=== PATIENT | female | born 1945 | race Caucasian/White ===

== ENCOUNTER 2016-08-26 02:37 | Emergency (ER) | payer MEDICARE ==
[~2016-08-26] VITALS: Ht 157.5 cm; Wt 54.5 kg
[~2016-08-26 02:37] MED LIST: AMOXICILLIN 8751 TAB PO; CALCIUM 600600 M2 PO; CAPOTEN 25MG25 MG PO; FERROUS SU325 MG/TAB PO; FLAGYL500 MG PO; IRON325 MG PO; MULTI VITAMINS1 TAB PO; NORVASC 5MG5 MG/TAB PO; OMNICEF 300MG300 MG PO; PROTONIX 40MG T40 MG PO; PYRIDIUM 100MG100 MG PO; TYLENOL 325MG325 MG PO; VITAMIN D32000 I1 PO; VTAMINC250TA; ZIAC 5/6.25MG T1 TAB PO; ZYRTEC 10MG10 MG PO
[2016-08-26 02:44] VITALS: TEMP 97.5
[2016-08-26] MEDS ORDERED: FLOVENT DI50 MCG/Act IH (03:04)
[2016-08-26 03:48] LABS: BASO # 0.1 (0.0-0.2); BASO % 0.8 % (0.0-2.0); EOS # 0.4 (0.0-0.7); EOS % 4.8 % (0-4.0); GRAN # 5.9 (1.4-6.5); HEMATOCRIT 37.1 % (37.0-47.0); HEMOGLOBIN 12.9 g/dl (12.5-16.0); LYMPH # 1.8 (1.2-3.4); LYMPH % 19.6 % (20.0-51.0); MEAN CELL VOLUME 88 fl (80.0-100.0); MEAN CORPUSCULAR HEMOGLOBIN 31 pg (27.0-31.0); MEAN CORPUSCULAR HGB CONC 35 g/dl (33.0-37.0); MEAN PLATELET VOLUME 10.3 fl (7.4-10.4); MONO % 10.4 % (1.7-9.3); PLATELET COUNT 274 K/mm3 (130-400); RED BLOOD COUNT 4.21 M/mm3 (4.10-5.30); REDCELL DISTRIBUTION WIDTH-CV 11.9 % (11.5-14.5); WHITE BLOOD COUNT 9.1 K/mm3 (4.8-10.8)
[2016-08-26 04:00] LABS: ADJUSTED CALCIUM 9.5 mg/dL (8.4-10.2); BILIRUBIN,TOTAL 0.6 mg/dL (0.0-1.0); C-REACTIVE PROTEIN 2.2 mg/dL (0.0-0.9); CALCIUM 9.5 mg/dL (8.4-10.2); POTASSIUM 4.2 mmol/L (3.4-5.0)
[2016-08-26] MEDS ORDERED: ATIVAN 0.50.5 MG/TAB PO (04:29)
[2016-08-26] MEDS ORDERED: AMOXICILLIN 8751 TAB PO (04:29)
[2016-08-26 04:46] VITALS: BP 168/89; PULSE 62
== END 2016-08-26 04:46 | disposition home or self-care (01) ==
LOC: COL.ER 02:37
PROVIDERS: Emergency Medicine
DX: J32.9 Chronic sinusitis, unspecified (principal); R42 Dizziness and giddiness; R00.1 Bradycardia, unspecified; I10 Essential (primary) hypertension; J44.9 Chronic obstructive pulmonary disease, unspecified; J45.909 Unspecified asthma, uncomplicated; F17.210 Nicotine dependence, cigarettes, uncomplicated
CPT/HCPCS: J2060; J2405; J7030

== ENCOUNTER → 2018-04-20 | Outpatient (CLI) | payer MEDICARE ==
[~2018-04-20] MED LIST changes: +ATIVAN 0.50.5 MG/TAB PO; +FLOVENT DI50 MCG/Act IH
== END ==
LOC: MC.RAD 10:57
DX: Z12.31 Encounter for screening mammogram for malignant neoplasm of breast (principal)